=== PATIENT | male | born 1965 | race Caucasian/White ===

== ENCOUNTER 2021-07-13 11:06 | Emergency (ER) | payer OTHER, SELFPAY ==
[2021-07-13 11:23] VITALS: BP 150/72; PULSE 78; RESP 18; TEMP 36.7; O2SAT 98
--- NOTE | 2021-07-13 11:30 | ED.URI ---
HPI - URI/Sore Throat General Chief Complaint: Upper Respiratory Infection Stated Complaint: Chest Congestion,Runny Nose,Cough,Headache Time Seen by Provider: 07/13/21 11:40 Source: patient and RN notes reviewed Mode of arrival: ambulatory Limitations: no limitations History of Present Illness HPI Narrative: 56-year-old male presents with concern for chest congestion, pressure, cough, ear pressure, sinus pressure, rhinorrhea, nasal congestion that started on Friday. Reports he has been vaccinated for Covid. He denies body aches, fever, chills. Denies nausea, vomiting, diarrhea. Has not been using any [id number] remedies. MD elicited complaint: cough Related Data Home Medications Medication Instructions Recorded Confirmed Baby Aspirin 81 mg PO DAILY 07/13/21 07/13/21 allopurinol 100 mg PO DAILY 07/13/21 07/13/21 benazepril 40 mg PO DAILY 07/13/21 07/13/21 buspirone 5 mg PO DAILY 07/13/21 07/13/21 carvedilol 25 mg PO DAILY 07/13/21 07/13/21 cyanocobalamin (vitamin B-12) 1,000 mcg PO DAILY 07/13/21 07/13/21 [Vitamin B-12] ferrous sulfate [FeroSul] 325 mg PO DAILY 07/13/21 07/13/21 metformin 500 mg PO BID 07/13/21 07/13/21 nifedipine 90 mg PO DAILY 07/13/21 07/13/21 semaglutide [Ozempic] 1 mg SUBCUT WEEKLY 07/13/21 07/13/21 simvastatin 40 mg PO DAILY 07/13/21 07/13/21 tamsulosin 0.4 mg PO DAILY 07/13/21 07/13/21 venlafaxine 225 mg PO DAILY 07/13/21 07/13/21 Allergies Allergy/AdvReac Type Severity Reaction Status Date / Time codeine Allergy Mild Itching Verified 07/13/21 11:13 Review of Systems Review of Systems: CONSTITUTIONAL: Denies malaise, chills, sweats, or fever. EYES: Denies visual changes, redness, or discharge. ENT: Reports rhinorrhea, congestion, sinus pressure, otalgia and sore throat. CARDIOVASCULAR: Denies chest pain, palpitations, or edema. RESPIRATORY: Reports cough. Denies dyspnea. GASTROINTESTINAL: Denies abdominal pain, nausea, vomiting, diarrhea SKIN: Denies rash or itching. MUSCULOSKELETAL: Denies myalgia. NEUROLOGIC: Denies headache. All systems reviewed & are unremarkable except as noted in HPI and below PMFSH Comments At time of signature, agree with nursing past medical, surgical, social and family history. There is no relevant family history pertinent to the presenting complaint Exam Narrative: GENERAL: Well-appearing, well-nourished, and in no acute distress. HEAD: Normocephalic EYES: PERRLA, conjunctivae clear ENT: Nares clear, clear discharge. Mucous membranes moist. TM pearly rao with dull light reflex bilaterally; no tragal tenderness. Oropharynx not erythematous without lesions. Tonsils not enlarged and without exudate, no drooling, no hoarseness, no trismus, uvula midline. NECK: Supple. No lymphadenopathy CHEST: Clear to auscultation, breath sounds equal. No wheezing, rhonchi, rales, or stridor. No respiratory distress, speaks in full sentences. HEART: Regular rate and rhythm. No murmur heard. SKIN: Warm, dry, no rash. NEURO: Alert and oriented x3. PSYCH: Normal mood and affect Course Course Emergency Course: Patient is aware of diagnosis, understands and agrees to treatment plan. Anticipatory guidance given. Patient agrees to follow-up as directed and is aware of reasons to seek care at the emergency department. Portions of this record may have been created with voice recognition software Vital Signs Vital signs: Vital Signs Temperature 98.0 F 07/13/21 11:23 Pulse Rate 78 07/13/21 11:23 Respiratory Rate 18 07/13/21 11:23 Blood Pressure 150/72 H 07/13/21 11:23 Pulse Oximetry 98 07/13/21 11:23 Temperature 98.0 F 07/13/21 11:23 Pulse Rate 78 07/13/21 11:23 Respiratory Rate 18 07/13/21 11:23 Blood Pressure 150/72 H 07/13/21 11:23 Pulse Oximetry 98 07/13/21 11:23 Reviewed. MDM - URI/Sore Throat MDM Narrative Medical decision making narrative: Differential diagnosis considered: Lee virus, strep pharyngitis, allergic rhinitis, upper
== END 2021-07-13 12:03 | disposition home or self-care (01) ==
PROVIDERS: Emergency Provider Nurse Practitioner
DX: J40 Bronchitis, not specified as acute or chronic (principal); Z20.822 Contact with and (suspected) exposure to COVID-19; E78.00 Pure hypercholesterolemia, unspecified; I10 Essential (primary) hypertension; K21.9 Gastro-esophageal reflux disease without esophagitis; N40.0 Benign prostatic hyperplasia without lower urinary tract symptoms; M10.9 Gout, unspecified; E11.9 Type 2 diabetes mellitus without complications; F41.9 Anxiety disorder, unspecified; F32.9 Major depressive disorder, single episode, unspecified
CPT/HCPCS: 87081; 87426; 87804; 87880; 99213; C9803; G0463

== ENCOUNTER 2021-11-06 10:16 | Emergency (ER) | payer OTHER, SELFPAY ==
[2021-11-06 11:16] VITALS: BP 173/83; PULSE 66; RESP 20; TEMP 36.8; O2SAT 97
--- NOTE | 2021-11-06 11:16 | ED.SOB ---
HPI - SOB/Dyspnea General Chief Complaint: Shortness of Breath/Dyspnea Stated Complaint: SOB Time Seen by Provider: 11/06/21 11:16 Mode of arrival: ambulatory Limitations: no limitations History of Present Illness HPI Narrative: 56 year old male presents with concern for chest heaviness, shortness of breath that started Friday. He denies any runny nose, sore throat, nasal congestion, cough, wheezing. Reports feeling of not able to get a full breath. Reports chest heaviness worsened today. He denies any history of cardiac event in the past. MD elicited complaint: shortness of breath Related Data Home Medications Medication Instructions Recorded Confirmed allopurinol 100 mg PO DAILY 07/13/21 07/13/21 benazepril 40 mg PO DAILY 07/13/21 07/13/21 buspirone 5 mg PO DAILY 07/13/21 07/13/21 carvedilol 25 mg PO DAILY 07/13/21 07/13/21 cyanocobalamin (vitamin B-12) 1,000 mcg PO DAILY 07/13/21 07/13/21 [Vitamin B-12] ferrous sulfate [FeroSul] 325 mg PO DAILY 07/13/21 07/13/21 metformin 500 mg PO BID 07/13/21 07/13/21 semaglutide [Ozempic] 1 mg SUBCUT WEEKLY 07/13/21 07/13/21 simvastatin 40 mg PO DAILY 07/13/21 07/13/21 tamsulosin 0.4 mg PO DAILY 07/13/21 07/13/21 venlafaxine 225 mg PO DAILY 07/13/21 07/13/21 aspirin 81 mg PO DAILY 11/06/21 11/06/21 empagliflozin [Jardiance] 10 mg PO DAILY 11/06/21 11/06/21 omega-3 fatty acids [Fish Oil] 1,000 mg PO DAILY 11/06/21 11/06/21 Allergies Allergy/AdvReac Type Severity Reaction Status Date / Time codeine Allergy Mild Itching Verified 11/06/21 11:18 Review of Systems Review of Systems: CONSTITUTIONAL: Denies malaise ENT: Denies rhinorrhea, congestion, sinus pain, otalgia or sore throat. CARDIOVASCULAR: Reports chest heaviness RESPIRATORY: Reports shortness of breath NEUROLOGIC: Denies numbness, weakness, or headache. All systems reviewed & are unremarkable except as noted in HPI and below PMFSH Comments At time of signature, agree with nursing past medical, surgical, social and family history. There is no relevant family history pertinent to the presenting complaint Exam Narrative: GENERAL: Nontoxic-appearing and in no acute distress. HEAD: Normocephalic, atraumatic. EYES: PERRLA, sclera clear ENT: Nares clear. Mucous membranes moist. NECK: Supple. CHEST: No respiratory distress. Clear to auscultation. No bony deformities, no asymmetry. Speaks in full sentences. HEART: Regular rate and rhythm. No murmur heard. Normal peripheral pulses. EXTREMITIES: No edema. SKIN: Warm, dry, no visible rash. NEURO: Alert and oriented x3. PSYCH: Normal mood and affect Course Course Emergency Course: Patient is aware of, understands and agrees to be seen in the emergency department. Patient refuses EMS, agrees to proceed directly to the emergency department. Portions of this record may have been created with voice recognition software Level of Care: Express Care Visit Vital Signs Vital signs: Reviewed. Transfer Transfered to: [facility] Transportation: Other (Private vehicle, refuse EMS) Transfer rationale: Abnormal EKG, chest heaviness Accepting physician: Hospital will not allow direct transfer, not able to give report to her physician. Report given to ED charger operatorcan maker comments: Stable for transfer via private vehicle at this time, risks explained of refusing EMS MDM - SOB/Dyspnea MDM Narrative Medical decision making narrative: Patient's history and EKG warrant further evaluation the emergency department; patient is non-toxic appearing and is in no distress. ECG Data EKG #1: Attestation: I personally reviewed and interpreted this ECG as follows: ECG completion date: 11/06/21 ECG completion time: 11:16 Ischemic changes: other (Possible inferior VT, probably old) Interpretation: Rate 72, parable 205, QRS duration 123, QT 414, QTc 438 Critical Care Time Critical Care Time Critical Care Time: No Discharge Plan Discharge Clinical Impressi
--- NOTE | 2021-11-06 11:36 | ECG_ITS ---
Measurements Intervals [place] Rate: 72 P: 30 [place]: 205 QRS: 64 QRSD: 123 T: 11 QT: 414 QTc: 455 Interpretive Statements SINUS RHYTHM SMALL LATERAL Q-WAVES, CANNOT RULE OUT OLD OLD LATERAL AL NO PREVIOUS EKG Electronically Signed On 11-06-2021 18:37:13 CDT by Elba Marcano M.D.
== END 2021-11-06 11:25 | disposition short-term general hospital (02) ==
PROVIDERS: Emergency Provider Nurse Practitioner
DX: R06.02 Shortness of breath (principal); E78.00 Pure hypercholesterolemia, unspecified; I10 Essential (primary) hypertension; K21.9 Gastro-esophageal reflux disease without esophagitis; N40.0 Benign prostatic hyperplasia without lower urinary tract symptoms; M10.9 Gout, unspecified; E11.9 Type 2 diabetes mellitus without complications; F41.9 Anxiety disorder, unspecified; F32.A Depression, unspecified
CPT/HCPCS: 93005; 99213; G0463

== ENCOUNTER 2022-07-14 11:23 | Emergency (ER) | payer OTHER, SELFPAY ==
--- NOTE | ~2022-07-14 | XR_ITS ---
EXAMINATION: [id number] DATE: 07/14/2022 13:29 INDICATION: Bilateral rib pain post fall 4 days prior TECHNIQUE: AP view of the chest and 3 views of the left ribs and 3 views of the right ribs were obtained. COMPARISON: None FINDINGS: Gas-filled stomach and splenic flexure the colon underlying the elevated left hemidiaphragm. There is some linear discoid atelectasis along the left lung base. No other airspace opacities, pulmonary mila ma, pleural effusion or pneumothorax. Cardiomediastinal silhouette is normal. Postoperative change of prior median sternotomy, aortic valve repair and left atrial appendage clipping. Small electronic de vice projects along the anterior chest wall anterior to the cephalad aspect of the sternum, group eit her internal or external to the patient. No rib fractures identified. The left or right. Postoperativ e change of prior ventral hernia mesh repair. IMPRESSION: 1. No rib fractures identified on either the left or right. 2. Elevation left hemidiaphragm with mild left basilar atelectasis. No other acute cardiopulmonary di sease. Reviewed, dictated and finalized at location A. SHER MACHINE IMPRESSION: 1. No rib fractures identified on either the left or right. 2. Elevation left hemidiaphragm with mild left basilar atelectasis. No other ac torres martinez cardiopulmonary disease.
[2022-07-14 12:51] VITALS: BP 125/77; PULSE 64; RESP 18; TEMP 36.4; O2SAT 100
--- NOTE | 2022-07-14 13:47 | ED.LOWEXIN ---
HPI - Extremity Injury (Lower) General Chief Complaint: Extremity Injury, Lower Stated Complaint: Bilateral Knees,Face Pain due to Fall Source: patient Mode of arrival: ambulatory Limitations: no limitations History of Present Illness HPI Narrative: 57-year-old male presents to Express Care complains of bilateral rib pain after falling 4 days ago. Patient reports he was outside, walking on a sidewalk in [place] neighborhood when he tripped and fell landing on a patch of grass; patient reports that he went on his bilateral knees and left arm. Patient reports that he did hit his nose but denies loss of conscious. Patient reports the symptoms are improving but he continues with bilateral rib pain. Patient worsens pain is worse with deep breathing or movement. MD complaint: other (bilateral rib pain ) Onset (ago): day(s) (4) Type of Injury: blunt Relieving factors: nothing Exacerbating factors: movement and palpation Context: walking Treatments prior to arrival: cold therapy Related Data Home Medications Medication Instructions Recorded Confirmed allopurinol 100 mg tablet 100 mg PO DAILY 07/13/21 11/06/21 benazepril 40 mg tablet 40 mg PO DAILY 07/13/21 11/06/21 buspirone 5 mg tablet 5 mg PO DAILY 07/13/21 11/06/21 carvedilol 25 mg tablet 25 mg PO DAILY 07/13/21 11/06/21 cyanocobalamin (vitamin B-12) 1,000 mcg PO DAILY 07/13/21 11/06/21 1,000 mcg tablet (Vitamin B-12) ferrous sulfate 325 mg (65 mg 325 mg PO DAILY 07/13/21 11/06/21 iron) tablet (FeroSul) metformin 500 mg tablet 500 mg PO BID 07/13/21 11/06/21 semaglutide 1 mg/dose (4 mg/3 mL) 1 mg subcut WEEKLY 07/13/21 11/06/21 subcutaneous pen injector (Ozempic) simvastatin 40 mg tablet 40 mg PO DAILY 07/13/21 11/06/21 tamsulosin 0.4 mg capsule 0.4 mg PO DAILY 07/13/21 11/06/21 venlafaxine 225 mg tablet,extended 225 mg PO DAILY 07/13/21 11/06/21 release 24 hr aspirin 81 mg tablet 81 mg PO DAILY 11/06/21 11/06/21 empagliflozin 10 mg tablet 10 mg PO DAILY 11/06/21 11/06/21 (Jardiance) omega-3 fatty acids 1,000 mg PO DAILY 11/06/21 11/06/21 Allergies Allergy/AdvReac Type Severity Reaction Status Date / Time codeine Allergy Mild Itching Verified 11/06/21 11:18 Review of Systems Constitutional: Constitutional: Denies chills, Denies fatigue, Denies fever(s) and Denies weakness ENT: Denies dizziness Respiratory: Respiratory: Denies cough, Denies dyspnea and Denies wheezing Gastrointestinal: Gastrointestinal: Denies abdominal pain, Denies diarrhea, Denies nausea and Denies vomiting Musculoskeletal: Musculoskeletal: Reports arthralgias Comments: bilateral rib pain, bruising/abrasion to left knee Integumentary/Breasts: Comments: abrasion to left knee PMFSH Surgical History Surgical History (Updated 07/14/22 @ 13:57 by Rosmery Triana, CLERICAL METHODS ANALYST) History of open heart surgery Comments At time of signature, I agree with nursing past medical, surgical, social and family history. There is no relevant family history pertinent to the presenting complaint. Exam Const: General: healthy appearing Nutritional Appearance: well nourished Orientation/consciousness: patient oriented x3 Limitations: no limitations Neck: Neck: normal visual inspection Resp: Effort & Inspection: normal respiratory effort Auscultation: clear to auscultation bilaterally, no crackles, no rales, no rhonchi and no wheezes Cardio: Rate: regular rate Rhythm: regular rhythm Heart sounds: no murmurs Skin: General skin exam: normal color Other: Healing 1 cm abrasion or 2 left knee; there is also two 1 cm healing contusions noted to left knee. Extrem: General: no clubbing, cyanosis or edema and no pedal edema Other: Pain noted to bilateral lateral aspects of rib regions. There is no swelling, bruising, erythema or open wounds noted. Psych: Mental Status: mental status grossly normal Affect: normal affect Attitude: cooperative Course Course Level of Care: Express Care Visit Vital
== END 2022-07-14 14:13 | disposition home or self-care (01) ==
PROVIDERS: Emergency Provider Nurse Practitioner Family
DX: R07.81 Pleurodynia (principal); W19.XXXA Unspecified fall, initial encounter
CPT/HCPCS: 71111; 99213; G0463